=== PATIENT | female | born 1980 | race Caucasian/White ===

== ENCOUNTER 2018-05-16 11:41 | Emergency (ER) | payer BC, OTHER ==
--- NOTE | 2018-05-16 12:17 | UC ---
Eye Complaint HPI - HPI Summary HPI Summary: Patient is a 38-year-old female who presents to the ED with chief complaint bilateral conjunctival injection, pain, tearing. Denies any difficulty seeing or other visual disturbances. Symptoms began 2 days ago for starting in the right eye then radiating over into the left eye. She endorses a large amount of green mucous drainage from the bilateral eyes this morning, but none currently. She denies any fevers, sweats, chills or recent illness. - History of Current Complaint Chief Complaint: UCEye Stated Complaint: EYE ISSUE Time Seen by Provider: 05/16/18 12:02 Hx Obtained From: Patient Hx Last Menstrual Period: 05/02/18 ?: No Onset/Duration: Sudden Onset Timing: Constant Severity Initially: Moderate Severity Currently: Moderate Pain Intensity: 1 Pain Scale Used: 0-10 Numeric Location of Injury: Conjunctiva Character: Dull Aggravating Factor(s): Nothing Alleviating Factor(s): Nothing Associated Signs And Symptoms: Positive: Drainage (Purulent) - Risk Factors Penetrating Injury Risk Factor: Negative Acute Glaucoma Risk Factors: Eye Inflammation - Allergies/Home Medications Allergies/Adverse Reactions: Allergies Allergy/AdvReac Type Severity Reaction Status Date / Time No Known Allergies Allergy Verified 05/16/18 11:54 Home Medications: Home Medications Fluticasone NASAL SPRAY 50MCG* [Flonase NASAL SPRAY 50MCG*] 1 spray NASAL DAILY 05/16/18 [History Confirmed 05/16/18] Levocetirizine Dihydrochloride [Xyzal] 2.5 mg PO BEDTIME 05/16/18 [History Confirmed 05/16/18] Multivitamin [Multivitamins] 1 tab PO DAILY 05/16/18 [History Confirmed 05/16/18 ] PMH/Surg Hx/FS Hx/Imm Hx Previously Healthy: Yes - Surgical History Surgical History: None - Social History Alcohol Use: Rare Substance Use Type: None Smoking Status (MU): Never Smoked Tobacco Review of Systems Constitutional: Negative Skin: Negative Eyes: Drainage, Eye Redness Respiratory: Negative Cardiovascular: Negative Motor: Negative Neurovascular: Negative Musculoskeletal: Negative Neurological: Negative Psychological: Negative Is Patient Immunocompromised?: No All Other Systems Reviewed And Are Negative: Yes Physical Exam Triage Information Reviewed: Yes Appearance: Well-Appearing, Well-Nourished Vital Signs: Initial Vital Signs Temp 97.9 F 05/16/18 11:55 Pulse 65 05/16/18 11:55 Resp 16 05/16/18 11:55 BP 109/79 05/16/18 11:55 Pulse Ox 100 05/16/18 11:55 Vital Signs Reviewed: Yes Eye Exam: Normal Eyes: Positive: Conjunctiva Inflamed Neck exam: Normal Neck: Positive: Supple Respiratory Exam: Normal Respiratory: Positive: Chest non-tender Cardiovascular Exam: Normal Cardiovascular: Positive: RRR Musculoskeletal Exam: Normal Musculoskeletal: Positive: Strength Intact Neurological: Positive: Alert Psychological Exam: Normal Psychological: Positive: Normal Response To Family Skin Exam: Normal Eye Complaint Course/Dx - Course Course Of Treatment: Bilateral conjunctival injection with green drainage resembling bacterial conjunctivitis. Patient is given polymyxin trimethoprim drops 1 to 2 drops four times daily for 5 to 7 days. Lungs CTA, RRR. - Differential Dx/Diagnosis Provider Diagnoses: Bacterial Conjunctivitis Discharge - Sign-Out/Discharge Documenting (check all that apply): Discharge/Admit/Transfer - Discharge Plan Condition: Stable Disposition: HOME Prescriptions: Polymyx/Trimethoprim OPTH* [Polytrim OPHTH*] 1 drop BOTH EYES QID #1 [id number] Patient Education Materials: Conjunctivitis (ED) Referrals: No Primary Care Phys,NOPCP [Primary Care Provider] - Additional Instructions: Polymyxin drops: 1 to 2 drops four times daily for 5 to 7 days Wash hands frequently - Billing Disposition and Condition Condition: STABLE Disposition: Home
== END 2018-05-16 12:14 | disposition home or self-care (01) ==
LOC: UCEAST 11:41
DX: H10.9 Unspecified conjunctivitis (principal)
CPT/HCPCS: 99202; G0463